=== PATIENT | male | born 1980 | race Caucasian/White ===

== ENCOUNTER 2016-05-05 10:39 | Emergency (ER) | payer MEDICAID ==
[~2016-05-05] VITALS: Ht 182.9 cm; Wt 118.4 kg
[~2016-05-05 10:39] MED LIST: ALBUTEROL2 PUFFS/17 IN; AMOXIL500 M1 PO; AUGMENTIN 875-1 EACH PO; AVPAK AZITHROM250 MG PO; CIPRO 250MG TA250 MG PO; CIPRO 500MG TA500 MG PO; DIAZEPAM5 MG PO; FLONASE 50 MCG16 GM; IBUPROFEN 600M600 MG PO; KEFLEX 500MG.500 MG PO; LEVAQUIN500 MG PO; MEDROL 4MG. DOSE4 MG PO; MOTRIN 400MG.400 MG PO; MYLANTA 150 ML150 ML PO; NOMEDS; NORCO 325 MG-51 TAB PO; PERCOCET 5/3251 EACH PO; PHENERGAN 25MG.25 M1 PO; PREDNISONE 20MG20 MG PO; TESSALON PERLE100 M1 PO; TESSALON PERLE100 MG PO; VICODIN 5/500 T1 TAB PO; VOLTAREN75 MG PO; ZANTAC 150150 MG OR; ZANTAC 150150 MG PO; [UNRECOGNIZED DRUG - OTHER] SC
--- NOTE | 2016-05-05 10:56 | Urgent Treatment Center Report ---
History of Present Issue Date/Time Seen by Provider 05/05/16 1053 Visit Reason Pt arrived:Walked Presenting Problem:C/O 'BURNING, SHOOTING' GHT ANKLE PAIN AFTER TWISTING IT LAST NIGHT. Location if Accident: Onset of symptoms date/time:/ or onset unknown for:MEDICAL HX UNKNOWN Have you (or family members/close friends) recently traveled outside the [place]? N If Yes, where/when: Have you had exposure to infectious disease within the past month? TB? Other? Specify: Patient states that he stepped in a hole and rolled his ankle last night states he when he almost fell he twisted his ankle now having burning pain in his heel area ALLERGIES Coded Allergies: No Known Allergies (01/04/16) Home Medications Reported Medications No Known Home Medications History Medical History General CAD? No Angina: Yes [place]: No Hypertension? Yes Hyperlipidemia? No CHF? No DVT? No PE? No COPD? No Asthma? No Anemia? No GERD? No Gastric ulcers? No GI Bleed? No Hernia? No Thyroid Problems? No Hypothyroidism? No CVA? No Seizures? No Diabetes? No Insulin Dependent: No Insulin Pump: No Home FSBS? No Renal Insuffiency? No UTI? No Stones? No BPH? No GB Disease: Yes Nephritic Syndrome? No Asplenia? No Hepatitis? No Sickle Cell Disease? No Arthritis? No Migraines? No Cataracts? No Glaucoma? No MRSA? No HIV? No TB? No Anxiety? No Depression? No Cancer? No More? No Immunization HX DT/Tetanus 1-4 Years Ago Flu 2014-16FSN Pneumonia Refuses Surgical Hx Previous Surgery?Y Gallbladder (Other) Oral Surgery COLONOSCOPY BICEP RIGHT Family History Family HX Diabetes Yes CAD Yes Hypertension Yes Hyperlipidemia No Cancer No TB No Social History Smoking Hx Smoker: Former Smoker Tobacco: No Alcohol Alcohol: No Review of Systems All Other Systems Reviewed and Negative Physical Exam Vital Signs Vital Signs Date Time Temp Pulse Resp B/P Pulse O2 O2 Flow FiO2 Ox Delivery Rate 05/05 1045 99.3 95 20 143/87 96 General Appearance normal appearance, WD/WN, no apparent distress, mild distress Respiratory Status Yes: trachea midline, chest symmetrical, non tender chest. No: respiratory distress. Cardiovascular normal exam, no peripheral edema, no gallop, no JVD Extremities right ankle/heel pain Neurologic alert, normal exam, no motor/sensory deficits, oriented x 3 Medical Decision Making LABS/Meds/Orders Pt receiving controlled substance in ED? No Results/Orders Orders Procedure Date/time Status [facility] STABILIZE JOINT/AREA 05/05 1145 Active STABILIZE JOINT 05/05 1145 Active XRAY/CT/US XRAY/CT/US XR interpretation by discussed w/radiologist Xray Results normal/NAD, no fracture seen Comment Patient complaining of pain over achilles tendon area. Boot placed on foot and patient given crutches will have him follow up with ortho for more extensive exam and tests. Departure Departure Time of Disposition 1143 Disposition DC Home or Self Care(routine) Clinical Impression Primary Impression: Right foot injury Qualifiers: Encounter type: initial encounter Qualified Code: S99.921A - Unspecified injury of right foot, initial encounter Secondary Impressions: Right foot sprain Qualifiers: Encounter type: initial encounter Qualified Code: S93.601A - Unspecified sprain of right foot, initial encounter Condition STABLE Patient Instructions DI for Foot Pain, DI for Foot Sprain, How To Perform RICE ( Rest, Ice, Compress, Elevate) Additional Instructions Follow up with family doctor for follow up/referral to Ortho for further evalauation of foot injury RICE as direceted Over the counter Motrin as needed for pain Prescriptions Current Visit Scripts No Known Home Medications at 1147
--- NOTE | 2016-05-05 11:34 | RADIOLOGY REPORT PS360 ---
ANKLE-RT-3 VIEWS COMPARISON: None HISTORY: Right ankle pain after injury TECHNIQUE: AP lateral and oblique views FINDINGS: The medial and lateral malleolus appear intact with no evidence of fracture. The ankle mortise is normal. There is no significant soft tissue swelling. IMPRESSION: Negative Right ankle
[2016-05-05 11:56] VITALS: BP 143/87
== END 2016-05-05 11:59 | disposition home or self-care (01) ==
LOC: UTC 10:39
PROC: 2W3SX1Z Immobilization of Right Foot using Splint (ICD-10-PCS; principal; 2016-05-05)
DX: S93.601A Unspecified sprain of right foot, initial encounter (principal); X50.1XXA Overexertion from prolonged static or awkward postures, initial encounter; Y92.89 Other specified places as the place of occurrence of the external cause